=== PATIENT | male | born 1990 ===

== ENCOUNTER 2018-05-14 00:46 | Emergency (ER) | payer SELFPAY ==
[2018-05-14 01:03] VITALS: BMI 26.9
[2018-05-14 01:04] VITALS: RESP 16; TEMP 98.4; O2SAT 96
[2018-05-14] MEDS ORDERED: Povidone Iodine Topical 10% Sol ONE (01:41)
[2018-05-14] MEDS ORDERED: Tdap Vaccine 0.5 ml Vial (10-64 yrs) IM ONE (01:55)
[2018-05-14] MEDS ORDERED: Lidocaine 2% MPF (5 ml) Inj ONE (02:00)
--- NOTE | 2018-05-14 02:14 | ED PDOC ---
HPI: Wound Care - HPI Time Seen by Provider: 05/14/18 01:50 Chief Complaint (Nursing): Abnormal Skin Integrity Chief Complaint (Provider): left hand laceration History Per: Patient History Of Present Illness: 28 y/o male presents for evaluation of lacerations to 4th and 5th digits of left hand sustained prior to arrival. Patient states he had just finished his shift at work and was cleaning up and drinking beers (6) and accidentally cut himself with a knife. Last tetanus unknown. Past Medical History Reviewed: Historical Data, Nursing Documentation, Vital Signs Vital Signs: Last Vital Signs Temp 98.4 F 05/14/18 01:03 Pulse 94 H 05/14/18 01:03 Resp 16 05/14/18 01:03 BP 135/84 05/14/18 01:03 Pulse Ox 96 05/14/18 01:03 - Medical History PMH: Diabetes - Surgical History Surgical History: No Surg Hx - Family History Family History: States: Unknown Family Hx - Living Arrangements Living Arrangements: With Family - Immunization History Hx Tetanus Toxoid Vaccination: (UTD) Hx Influenza Vaccination: No Hx Pneumococcal Vaccination: No - Home Medications Home Medications: Ambulatory Orders Medication Instructions Recorded Amoxicillin/Clavulanate [Augmentin 1 tab PO BID #14 tab 07/16/15 875 MG-125 MG] Ibuprofen [Motrin] 600 mg PO Q6H PRN #15 tab 07/16/15 Sulfamethoxazole/Trimethopri 1 tab PO BID #20 tab 07/16/15 [Bactrim Ds 800 mg-160 mg] Ibuprofen [Motrin] 600 mg PO Q6 PRN #15 tab 11/30/15 Cephalexin [cephalexin] 500 mg PO Q6 #27 cap 05/14/18 Naproxen [Naprosyn] 500 mg PO Q12 PRN #20 tablet 05/14/18 - Allergies Allergies/Adverse Reactions: Allergies Allergy/AdvReac Type Severity Reaction Status Date / Time No Known Allergies Allergy Verified 05/14/18 01:02 Review of Systems ROS Statement: Except As Marked, All Systems Reviewed And Found Negative Musculoskeletal: Positive for: Hand Pain (left hand 5th digit) Physical Exam - Reviewed Nursing Documentation Reviewed: Yes Vital Signs Reviewed: Yes - Physical Exam Appears: Positive for: Well, Non-toxic, No Acute Distress Pulses-Radial (L): 2+ Pulses-Radial (R): 2+ Extremity: Positive for: Other (4cm open laceration volar left hand 5th digit PIP; + active bleeding. Unable to flex at PIP, DIP of left hand 5th digit. Distal sensation decreased. Cap refill <2 sec. 2cm superficial laceration palmar left hand 4th digit PIP; no active bleeding. FROM. 0.5cm superficial laceration mid palmar left hand 3rd digit; no active bleeding. FROM. Distal NV intact. Two size 0.5cm superficial lacerations palmar left hand 2nd digit; no active bleeding. FROM. Distal NV intact. ) Neurologic/Psych: Positive for: Alert, Oriented (x3), Gait (steady) - ECG O2 Sat by Pulse Oximetry: 96 - Other Rad xray left hand X-Ray: Viewed By Me X-Ray Interpretation: no acute findings - Progress ED Course And Treament: xray, Adacel IM, percocet PO Case discussed with Dr. Malone, hand specialist on-call; recommends closure in ED , splint and have patient call office in am to be scheduled for office appt. Procedure: Wound Repair - Time Performed Time Performed: 03:00 - Time Out Time Out: Side verified, Site verified, Patient ID confirmed, Sterile procedures obs. - Consent Obtained Consent obtained: Verbal - Performed by Performed by: Mid-level Provider - Location Shape:: Linear - Anesthetic Technique Local/Regional Anesthetic:: Lidocaine 1% - Debris Debris:: None - Irrigated Irrigated with ml of normal saline: 250mL - Complexity Complexity:: Intermediate (2 layer) - Wound repair method Sutures:: # (5th digit: 1 internal, 6 external, 4th digit: 4 external), Size ( 4th digit: 5'0 internal, 4'0 external 5th digit: 4'0 external), Type (5th digit : plain gut internal, nylon + prolene external. 4th digit: prolene) Gilda:: Tissue glue (2nd and 3rd digit lacerations), Steri-strips (2nd and 3rd digit lacerations) - Muscle repiar layer closed with Muscle repair layer closed with:: Wound well approximated, Abx ointment applied , Dressing applied (splint applied to 5th digit), Tetanus ordered - Patient tolerated procedure Patient Tolerated Procedure:: Well Medical Decision Making Medical Decision Making: Patient educated on wound care, advised to call Dr. Malone's office in am to schedule a follow up appointment Rx Keflex provided (dose given in ED) Suture removal 8-10 days Return precautions given Paper Tube Grader at bedside to take patient home Disposition - Clinical Impression Clinical Impression: Laceration of left little finger with tendon involvement, Laceration of multiple sites of left hand and fingers, Alcohol use - Patient ED Disposition Is Patient to be Admitted: No Counseled Patient/Family Regarding: Studies Performed, Diagnosis, Need For Followup, Rx Given - Disposition Referrals: Aishwarya Malone MD [Staff Provider] - [facility] [Outside] Disposition: Routine/Home Disposition Time: 04:13 Condition: STABLE Additional Instructions: Call Dr. Malone's office in the morning to schedule a follow up appointment Take medication as directed. Suture removal in 8-10 days Return to ED for fever, increased pain/swelling/redness near wounds, discharge from wounds, or other concerning symptoms Prescriptions: Cephalexin [cephalexin] 500 mg PO Q6 #27 cap Naproxen [Naprosyn] 500 mg PO Q12 PRN #20 tablet PRN Reason: Pain, Moderate (4-7) Instructions: Alcohol Use - When Is Drinking a Problem?, Laceration Repair, Tendon Laceration Print Language: SAMI
[2018-05-14] MEDS: Oxycodone/Acetaminophen 5/325 mg Tab PO ONE (02:21)
[2018-05-14] MEDS ORDERED: Oxycodone/Acetaminophen 5/325 mg Tab ONE (02:21)
[2018-05-14] MEDS: Tdap Vaccine 0.5 ml Vial (10-64 yrs) IM ONE (02:22)
[2018-05-14 04:19] VITALS: BP 114/80; PULSE 90
--- NOTE | 2018-05-14 08:01 | RAD ---
PROCEDURE: Left Hand Radiographs. HISTORY: hand left 5th digit laceration COMPARISON: None. FINDINGS: BONES: Normal. No fracture. JOINTS: Normal. No osteoarthritic changes. SOFT TISSUES: Soft tissue laceration like changes 5th digit apparently volar aspect proximal interphalangeal joint level. Overlying gauze material. No radiopaque foreign body appreciated OTHER FINDINGS: None. IMPRESSION: No fracture or cortical interruption. Soft tissue changes as above
== END 2018-05-14 04:19 | disposition home or self-care (01) ==
LOC: H.ER 00:46
DX: S61.217A Laceration without foreign body of left little finger without damage to nail, initial encounter (principal); W26.0XXA Contact with knife, initial encounter; Y99.0 Civilian activity done for income or pay; E11.9 Type 2 diabetes mellitus without complications